=== PATIENT | female | born 1975 | race Caucasian/White ===

== ENCOUNTER 2018-04-20 15:12 | Outpatient (CLI) | payer OTHER | END 2018-04-20 15:13 | disposition home or self-care (01) | LOC: BICMAMMO 15:12 | PROVIDERS: ATTEND Family Medicine | DX: Z12.31 Encounter for screening mammogram for malignant neoplasm of breast (principal) | CPT/HCPCS: 77063; 77067 ==

== ENCOUNTER 2019-04-25 15:07 | Outpatient (CLI) | payer OTHER ==
--- NOTE | 2019-04-25 16:48 | MMO ---
Bilateral MAMMO Bilat Screen [facility]. CLINICAL HISTORY: Patient is 43 years old and is seen for screening. VIEWS: The views performed were: . FILMS COMPARED: The present examination has been compared to a prior imaging study performed at [facility] on 04/20/2018. This study has been interpreted with the assistance of computer-aided detection. MAMMOGRAM FINDINGS: There are scattered fibroglandular densities. Finding 1: There is an asymmetry seen in the upper-outer region of the right breast. Finding 2: There is a focal asymmetry seen in the CC view only seen in the left breast. IMPRESSION: FINDING 1: ASYMMETRY IN THE RIGHT BREAST REQUIRES ADDITIONAL EVALUATION. ADDITIONAL IMAGING. FINDING 2: FOCAL ASYMMETRY IN THE LEFT BREAST REQUIRES ADDITIONAL EVALUATION. ADDITIONAL IMAGING. THE RESULTS OF THIS EXAM WERE SENT TO THE PATIENT. ACR BI-RADS Category 0 - Incomplete: Need additional imaging evaluation. [facility] will notify the patient of the need for additional imaging services. MAMMOGRAPHY NOTE: 1. A negative mammogram report should not delay a biopsy if a dominant of clinically suspicious mass is present. 2. Approximately 10% to 15% of breast cancers are not detected by mammography. 3. Adenosis and dense breasts may obscure an underlying neoplasm. Reported by: POLY WINN MD Electonically Signed: [id number]
== END 2019-04-25 15:08 | disposition home or self-care (01) ==
LOC: BICMAMMO 15:07
PROVIDERS: ATTEND Family Medicine
DX: Z12.31 Encounter for screening mammogram for malignant neoplasm of breast (principal); N64.89 Other specified disorders of breast
CPT/HCPCS: 77063; 77067

== ENCOUNTER 2019-05-02 11:19 | Outpatient (CLI) | payer OTHER ==
--- NOTE | 2019-05-02 11:44 | MMO ---
Bilateral MAMMO Bilat Diag [facility]DI+ABI. CLINICAL HISTORY: Patient is 43 years old and is seen for additional evaluation requested from prior study. The patient has no family history of breast cancer. The patient has no personal history of cancer. VIEWS: The views performed were: bilateral craniocaudal spot compression with tomosynthesis; bilateral mediolateral with tomosynthesis; and right mediolateral oblique spot compression with tomosynthesis. FILMS COMPARED: The present examination has been compared to prior imaging studies performed at [facility] on 04/20/2018 and 04/25/2019. This study has been interpreted with the assistance of computer-aided detection. MAMMOGRAM FINDINGS: There are scattered fibroglandular densities. The questionable asymmetric density did not persist with the additional views. There are no suspicious masses, suspicious calcifications, or new areas of architectural distortion. IMPRESSION: THERE IS NO MAMMOGRAPHIC EVIDENCE OF MALIGNANCY. A ROUTINE FOLLOW-UP MAMMOGRAM IN 1 YEAR IS RECOMMENDED. THE RESULTS OF THIS EXAM WERE SENT TO THE PATIENT. ACR BI-RADS Category 2 - Benign finding MAMMOGRAPHY NOTE: 1. A negative mammogram report should not delay a biopsy if a dominant of clinically suspicious mass is present. 2. Approximately 10% to 15% of breast cancers are not detected by mammography. 3. Adenosis and dense breasts may obscure an underlying neoplasm. Reported by: POLY WINN MD Electonically Signed: [id number]
== END 2019-05-02 11:20 | disposition home or self-care (01) ==
LOC: BICMAMMO 11:19
PROVIDERS: ATTEND Family Medicine
DX: R92.2 Inconclusive mammogram (principal)
CPT/HCPCS: 77066; G0279